=== PATIENT | female | born 1980 | race Hispanic/Latino ===

== ENCOUNTER 2017-12-08 13:02 | Inpatient (IN) | payer MEDICAID, OTHER ==
[2017-12-08 13:02] VITALS: BMI 23.3
[2017-12-08 14:45] LABS: BASO % 0.7 % (0.0-2.0); EOS # 0.2 K/uL (0.0-0.7); EOS % 2.3 % (0.0-4.0); HEMOGLOBIN 13.2 g/dL (11.0-16.0); LYMPH # 1.9 K/uL (1.0-4.3); LYMPH % 28.2 % (20.0-40.0); MEAN CELL VOLUME 85.7 fL (81.0-99.0); MEAN CORPUSCULAR HEMOGLOBIN 29.4 pg (27.0-31.0); MEAN CORPUSCULAR HGB CONC 34.3 g/dL (33.0-37.0); MEAN PLATELET VOLUME 7.7 fL (7.2-11.7); MONO # 0.4 K/uL (0.0-0.8); MONO % 6.5 % (0.0-10.0); NEUT # 4.3 K/uL (1.8-7.0); NEUT % 62.3 % (50.0-75.0); RBC 4.49 Mil/uL (3.80-5.20); RED CELL DISTRIBUTION WIDTH 14.9 % (11.5-14.5); WHITE BLOOD COUNT 6.9 K/uL (4.8-10.8)
[2017-12-08 14:53] LABS: HCG,QUALITATIVE URINE NEGATIVE (NEGATIVE)
[2017-12-08 14:56] LABS: SQUAMOUS EPITHIAL 5 /hpf (0-5); URINE BILIRUBIN NEGATIVE (NEGATIVE); URINE BLOOD NEGATIVE (NEGATIVE); URINE CLARITY Hazy (Clear); URINE COLOR Yellow (YELLOW); URINE GLUCOSE (UA) NORMAL (Normal); URINE LEUKOCYTE ESTERASE NEG Leu/uL (Negative); URINE PROTEIN NEGATIVE (NEGATIVE)
[2017-12-08 14:57] LABS: ALBUMIN 4.2 g/dL (3.5-5.0); ALT/SGPT 63 U/L (9-52); AST/SGOT 42 U/L (14-36); BLOOD UREA NITROGEN 19 mg/dL (7-17); CALCIUM 9.2 mg/dl (8.6-10.4); GFR AFRICAN-AMERICAN > 60; GFR NON-AFRICAN AMERICAN > 60
[2017-12-08 15:03] LABS: BARBITURATES, UR NEGATIVE (NEGATIVE); BENZODIAZEPINES, UR NEGATIVE (NEGATIVE); PHENCYCLIDINE, UR NEGATIVE (NEGATIVE)
[2017-12-08 15:05] LABS: OPIATES, UR POSITIVE (NEGATIVE)
--- NOTE | 2017-12-08 15:28 | C.PDOC ---
History Of Present Illness 37 y/o female, prescreened, presents to the ER requesting detox from opiate use. Patient states that he does IV drug use and his last use was today. Patient denies having suicidal ideation, homicidal ideation, and active physical complaints.Of note, patient is accompanied by family members. Time Seen by Provider: 12/08/17 13:47 Chief Complaint (Nursing): Medical Clearance History Per: Patient History/Exam Limitations: no limitations Past Medical History Reviewed: Historical Data, Nursing Documentation, Vital Signs Vital Signs: Last Vital Signs Temp 98.4 F 12/08/17 15:57 Pulse 76 12/08/17 15:57 Resp 18 12/08/17 15:57 BP 105/67 12/08/17 15:57 Pulse Ox 97 12/08/17 16:24 - Medical History PMH: Anxiety, Asthma, Back Problems, Depression, Diverticulitis, Fibromyalgia, Gastrointestinal Ulcer, Hyperthyroidism, Multiple Sclerosis Denies: Alzheimer's Disease, Anemia, Bronchitis, Cardia Arrhythmia, CHF, COPD , Crohn's Disease, Dementia, Diabetes, Emphysema, Gall Bladder Disease, Hepatitis, HIV, HTN, Hypercholesterolemia, Hypothyroidism, Kidney Stones, Migraine, Mitral Valve Prolapse, Pancreatitis, Parkinson's Disease, Peripheral Edema, Pneumonia, Chronic Kidney Disease, Seizures, Sickle Cell Disease, Sleep Apnea, TIA Surgical History: Denies: Coronary Stent, Pacemaker - [facility] Procedures APPLICATION OF SPLINT (01/28/03) COLONOSCOPY (12/06/11) D & C NEC (01/31/03) DETOXIFICATION SERVICES FOR SUBSTANCE ABUSE TREATMENT (06/06/16) ESOPHAGOGASTRODUODENOSCOPY [EGD] W/CLOSED BIOPSY (12/06/11) INJECT/INFUSE NEC (10/13/14) OTHER GROUP THERAPY (01/07/15) PERCUTAN NEEDLE BIOPSY OF BREAST (02/23/04) REMOV INTRALUM VAG FB (02/25/03) REMOV TUBE & ECTOP PREG (01/31/03) VACCINATION NEC (12/06/11) Family History: States: No Known Family Hx - Social History Hx Tobacco Use: No Hx Alcohol Use: No Hx Substance Use: Yes - Immunization History Hx Tetanus Toxoid Vaccination: Yes Hx Influenza Vaccination: No Hx Pneumococcal Vaccination: No Review Of Systems Except As Marked, All Systems Reviewed And Found Negative. Constitutional: Negative for: Fever, Chills Physical Exam - Physical Exam Appears: No Acute Distress Skin: Normal Color, Warm, Dry Head: Atraumatic, Normacephalic Eye(s): bilateral: Normal Inspection Nose: Normal Oral Mucosa: Moist Neck: Supple Chest: Symmetrical Cardiovascular: Rhythm Regular Respiratory: Normal Breath Sounds, No Rales, No Rhonchi, No Wheezing Gastrointestinal/Abdominal: Normal Exam, Bowel Sounds ((+) bowel sounds), Soft, No Tenderness, No Guarding, No Rebound Neurological/Psych: Oriented x3, Normal Speech ED Course And Treatment - Laboratory Results Result Diagrams: 12/08/17 14:38 12/08/17 14:38 O2 Sat by Pulse Oximetry: 97 (RA) Pulse Ox Interpretation: Normal Medical Decision Making Medical Decision Making: Assessment: Drug Abuse Plan: --Labs --UA Updates: Patient has been medically cleared for Crisis. 15:28 Patient has been admitted under the service of for drug abuse. Disposition Discussed With .: Carmita Mendoza Doctor Will See Patient In The: Hospital Counseled Patient/Family Regarding: Studies Performed, Diagnosis - Disposition Disposition: HOSPITALIZED Disposition Time: 15:28 Condition: FAIR - Clinical Impression Clinical Impression: Drug abuse - Scribe Statement The provider has reviewed the documentation as recorded by the Scribe Palma Up Provider Attestation: All medical record entries made by the Scribe were at my direction and personally dictated by me. I have reviewed the chart and agree that the record accurately reflects my personal performance of the history, physical exam, medical decision making, and the department course for this patient. I have also personally directed, reviewed, and agree with the discharge instructions and disposition.
--- NOTE | 2017-12-08 15:43 | PCM.BM ---
Treatment Plan Problems - Problems identified on initial assessmt potential for opiate withdrawal Date Initiated: 12/08/17 Time Initiated: 15:43 Status: Active Treatment assets and liabiliti Patient Assests: cooperative, cognitively intact Patient Liabilities: substance abuse, medical problems - Milieu Protocol Maintain good personal hygiene: daily Encourage regular showers, daily Remind patient to perform daily oral care, daily Assist patient to perform ADL's Conduct patient checks and document Observation sheet: Q15 minutes Maintain personal safety: every shift Educate patient to report safety concerns to staff, every shift Monitor environment for contraband/sharps Medication safety: Monitor for expected outcome, potential side effects: every shift, Assess barriers to learning: every shift, Assess readiness for medication education: every shift
[2017-12-08 15:55] VITALS: RESP 18
[2017-12-08] MEDS ORDERED: Aluminum Hydroxide/Magnesium Hydroxide Susp (30 mL) PO PRN (16:35)
--- NOTE | 2017-12-09 17:58 | PCM.PSYCH ---
Initial Psychiatric Evaluation - Initial Psychiatric Evaluation Type of Admission: Voluntary Legal Status: Capacity Chief Complaint (in patient's own words): I need help for my substance use. History of Present Illness and Precipitating Events: Patient is a 37 years old, single, unemployed, female, with no previous psychiatric history was admitted due to withdrawing from heroin, cocaine and cannabis. Heroin: Patient started using heroin about 3 years ago, increased gradually, currently she was using 20 bags of heroin daily, IV, last used yesterday. Longest period of abstinence was one month 2 years ago. Before started using heroin patient was using oxycodone, was using more than prescribed. Patient has history of multiple sclerosis. Patient also has history of ectopic and left breast cystectomy. Cocaine: Patient refused to provide information about cocaine use. Patient's response was I don't know next Cannabis: Same response I don't know. According to previous psychiatric patient was using cannabis. Was using once a month and one joint each time. Urine drug screen was also positive for methadone. Patient reported she went to [facility] and there she got methadone for pain. According to previous history patient also was using Connie. Patient smokes half pack of cigarettes daily and is requesting for nicotine patch. Patient was born in [place], has 12th grade of education. He is not working. Patient lives with boyfriend and is supported by her boyfriend. Patient is single and has no children. Current Medications: Active Medications Generic Name Dose Route Start Last Admin Trade Name Freq PRN Reason Stop Dose Admin Al Hydrox/Mg Hydrox/Simethicone 30 ml 12/08/17 16:35 Maalox 30 Ml PO TID PRN Indigestion / Heartburn Clonidine HCl 0.1 mg 12/08/17 16:35 12/08/17 21:09 Catapres PO 0.1 mg Q8 PRN Administration COWS Score More or Equal to 5 Dicyclomine HCl 10 mg 12/09/17 12:34 Bentyl PO Q6 PRN ABDOMINAL CRAMPS Ibuprofen 600 mg 12/08/17 16:36 12/09/17 12:49 Motrin Tab PO 600 mg Q6H PRN Administration Pain, moderate (4-7) Loperamide HCl 2 mg 12/08/17 16:35 Imodium PO Q8 PRN Diarrhea Lorazepam 1 mg 12/09/17 12:36 Ativan PO 12/11/17 23:00 Q6 PRN Anxiety Methadone HCl 15 mg 12/10/17 10:00 Methadone PO 12/13/17 09:59 Q24H KRISTOFER Taper Nicotine 1 patch 12/09/17 12:45 12/09/17 12:49 Nicoderm Cq TD 1 patch DAILY KRISTOFER Administration Ondansetron HCl 4 mg 12/08/17 16:35 Zofran Tab PO Q8 PRN Nausea/Vomiting Trazodone HCl 150 mg 12/08/17 22:00 12/08/17 21:09 Desyrel PO 150 mg HS KRISTOFER Administration Past Psychiatric History - Past Psychiatric History Previous [facility] History of Abuse: None reported History of ETOH/Drug Use: See HPI History of Family Illness: None reported Pertinent Medical Hx (Current Medical&Sleep Prob, Allergies): Allergies Allergy/AdvReac Type Severity Reaction Status Date / Time morphine Allergy ANAPHYLAXIS Verified 12/08/17 13:30 No Known Home Med 12/08/17 Multiple sclerosis Review of Systems - Psychiatric Psychiatric: As Per HPI Mental Status Examination - Personal Presentation Personal Presentation: Looks stated age - Affect Affect: Depressed - Motor Activity Motor Activity: Calm - Reliability in Providing Information Reliability in Providing Information: Fair - Speech Speech: Organized - Mood Mood: Depressed - Formal Thought Process Formal Thought Process: No Impairment - Hallucinations/Delusions Hallucinations: Other (None reported) Delusions: Other - Obsessions/Compulsions Obsessions: None Compulsions: None - Cognitive Functions Orientation: Person, Place, Situation, Time Sensorium: Alert Attention/Concentration: Attentive Abstract Thinking: Caro Estimate of Intelligence: Average Judgement: Intact, as evidence by: Insight regarding need for hospitalization Memory: Recent intact, as evidence by: Ability to recall events of the day, Remote intact, as evidenced by: Ability to recall historical events - Risk Risk: Withdrawal, Diminished functioning - Strength & Assets Inventory Strength & Assets Inventory: Cooperative - Limitations Limitations: Other DSM 5 DX - DSM 5 DSM 5 Diagnosis: Opiate use disorder severe Cocaine use disorder severe Cannabis use disorder severe - Recommended/Plan of Treatment Treatment Recommendations and Plan of Treatment: Patient education. Supportive therapy. CPT reported relapse prevention. AL for abstinence. We'll start methadone taper for opiate withdrawal symptoms. Other when necessary medications. Medical consult for multiple sclerosis. Patient wants to go to a rehabilitation after discharge from the hospital Projected ELOS: 4-5 days - Smoking Cessation Smoking Cessation Initiated: Yes
--- NOTE | 2017-12-09 19:19 | CP.PCM.CON ---
History of Present Illness - History of Present Illness History of Present Illness: Internal Medicine Consult Note - Hospitalist Service CC: "My legs are numb" HPI: Patient is a 37 year old female with past medical history of questionable multiple sclerosis, poly-substance abuse, asthma, herniated discs presented to [facility] requesting Detox for opiates. While on Detox floor, patient started developing bilateral lower extremity numbness and pain. She reports that her "knees are buckling". Patient states that she starts to experience these symptoms when she stops using drugs. She reports having lower back pain that radiates down both legs. Rates the pain a 9/10 on the pain scale. She reports that she has gotten epidural injections in the low back before in the past but that did not help. Patient states that she normally has unsteady gait, that improves with taking drugs. Her last fall was two weeks ago. For MS, she states that she was diagnosed two years ago by Dr Rivers in [place], she has tried Flexeril and Naproxen in the past but stopped due to the development of gastric ulcers. She has been using heroin for the past 3 years. Patient injects heroin in her arms and feet, denies injecting in her back or pelvis. She denies sharing needles, and states that she uses 20 bags per day. She reports smoking crack cocaine recently because she has been stressed. Also states that she smokes medical marijuana that is prescribed to her friend. Patient admits to having dysuria x 1 month. Denies any bladder or bowel incontinence. Denies fevers, chills, headaches, dizziness, cp, palpitations, sob, changes in bowel habits. Patient sees Dr Bonilla for pain management outpatient. Allergies: Morphine (swelling) Medical History: Multiple Sclerosis?, poly-substance abuse, asthma, carpel tunnel, gastric ulcers, Herniated discs Medications: Oxycodone 30mg PO Q4H prn pain, Fentanyl patch q72 hours (stopped taking), albuterol inhaler (uses everyday) Surgical History: Left salpingectomy, left breast cyst removal Social History: Injects 20 bags of heroin/day, smokes 1/2 pack of cigarettes a day x 15 years, denies alcohol use Family History: Mother - Hypertension; Father - from Lung [place] [employer] History: Last Menstrual Period 11/2017; not sexually active, denies history of STDs Past Patient History - Infectious Disease Hx of Infectious Diseases: None - Tetanus Immunizations Tetanus Immunization: Unknown - Past Medical History & Family History Past Medical History?: Yes - Past Social History Smoking Status: Heavy Smoker > 10 Cigarettes Daily - CARDIAC Hx Cardia Arrhythmia: No Hx Congestive Heart Failure: No Hx Hypercholesterolemia: No Hx Hypertension: No Hx Mitral Valve Prolapse: No Hx Pacemaker: No Hx Peripheral Edema: No - PULMONARY Hx Asthma: Yes Hx Bronchitis: No Hx Chronic Obstructive Pulmonary Disease (COPD): No Hx Emphysema: No Hx Pneumonia: No Hx Sleep Apnea: No - NEUROLOGICAL Hx Alzheimer's Disease: No Hx Dementia: No Hx Migraine: No Hx Multiple Sclerosis: Yes Hx Parkinson's Disease: No Hx Seizures: No Hx Transient Ischemic Attacks (TIA): No - HEENT Hx HEENT Problems: No - RENAL Hx Chronic Kidney Disease: No Hx Kidney Stones: No - ENDOCRINE/METABOLIC Hx Hyperthyroidism: Yes Hx Hypothyroidism: No - HEMATOLOGICAL/ONCOLOGICAL Hx Anemia: No Hx Human Immunodeficiency Virus (HIV): No Hx Sickle Cell Disease: No - INTEGUMENTARY Hx Dermatological Problems: No - MUSCULOSKELETAL/RHEUMATOLOGICAL Hx Falls: No Hx Herniated Disk: Yes Other/Comment: carpal tunnel syndrome - GASTROINTESTINAL Hx Crohn's Disease: No Hx Diverticulitis: Yes Hx Gall Bladder Disease: No Hx Pancreatitis: No - PSYCHIATRIC Hx Substance Use: Yes - SURGICAL HISTORY Hx Coronary Stent: No - ANESTHESIA Hx Anesthesia: Yes Hx Anesthesia Reactions: No Hx Malignant Hyperthermia: No Meds Allergies/Adverse Reactions: Allergies Allergy/AdvReac Type Severity Reaction Status Date / Time morphine Allergy ANAPHYLAXIS Verified 12/08/17 13:30 - Medications Medications: Current Medications Al Hydrox/Mg Hydrox/Simethicone (Maalox 30 Ml) 30 ml PO TID PRN PRN Reason: Indigestion / Heartburn Clonidine HCl (Catapres) 0.1 mg PO Q8 PRN PRN Reason: COWS Score More or Equal to 5 Last Admin: 12/08/17 21:09 Dose: 0.1 mg Dicyclomine HCl (Bentyl) 10 mg PO Q6 PRN PRN Reason: ABDOMINAL CRAMPS Ibuprofen (Motrin Tab) 600 mg PO Q6H PRN PRN Reason: Pain, moderate (4-7) Last Admin: 12/09/17 12:49 Dose: 600 mg Loperamide HCl (Imodium) 2 mg PO Q8 PRN PRN Reason: Diarrhea Lorazepam (Ativan) 1 mg PO Q6 PRN PRN Reason: Anxiety Stop: 12/11/17 23:00 Methadone HCl (Methadone) 15 mg PO Q24H [facility] PRN Reason: Taper Stop: 12/13/17 09:59 Nicotine (Nicoderm Cq) 1 patch TD DAILY [facility] Last Admin: 12/09/17 12:49 Dose: 1 patch Ondansetron HCl (Zofran Tab) 4 mg PO Q8 PRN PRN Reason: Nausea/Vomiting Trazodone HCl (Desyrel) 150 mg PO HS [facility] Last Admin: 12/08/17 21:09 Dose: 150 mg Physical Exam - Constitutional Appears: Non-toxic, No Acute Distress, Older Than Stated Age - Head Exam Head Exam: ATRAUMATIC, NORMAL INSPECTION, NORMOCEPHALIC - Eye Exam Eye Exam: EOMI, Normal appearance Pupil Exam: NORMAL ACCOMODATION - ENT Exam ENT Exam: Mucous Membranes Moist - Neck Exam Neck exam: Positive for: Full Rom - Respiratory Exam Respiratory Exam: Clear to Auscultation Bilateral, NORMAL BREATHING PATTERN. absent: Rales, Rhonchi, Wheezes - Cardiovascular Exam Cardiovascular Exam: REGULAR RHYTHM, +S1, +S2 - GI/Abdominal Exam GI & Abdominal Exam: Normal Bowel Sounds, Soft. absent: Guarding, Rebound, Rigid, Tenderness Additional comments: +Suprapubic tenderness - Rectal Exam Rectal Exam: Deferred - Extremities Exam Extremities exam: Negative for: calf tenderness Additional comments: Upper Extremities: Track estevez on both forearms Lower Extremities: +patient with broad based gait, +bilateral crepitus in knees , decreased sensation in right upper and lower leg Results - Vital Signs Recent Vital Signs: Last Vital Signs Temp 98.6 F 12/09/17 16:48 Pulse 65 12/09/17 13:05 Resp 18 12/09/17 16:48 BP 113/71 12/09/17 16:48 Pulse Ox 100 12/09/17 16:48 - Labs Result Diagrams: 12/08/17 14:38 12/08/17 14:38 Assessment & Plan - Assessment and Plan (Free Text) Assessment: A/P: Patient is a 37 year old female with past medical history of poly- substance abuse, questionable MS, asthma presents to [facility] requesting detox from opiates. Medicine was consulted to evaluate for bilateral lower extremity numbness and unsteady gait. Low back Pain/Leg pain -Stable, afebrile -Patient with history of Herniated discs -Denies bowel or bladder incontinence -Lumbar CT ordered for further evaluation -Bilateral Knee X rays ordered -PT eval/ OT eval ordered -Patient to ambulate with assistance -High fall risk Questionable history of MS -Patient states that she has seen Dr. Rivers ([place]) in the past -Brain MRI in 2014 not suggestive of multiple sclerosis -States that she has tried Flexeril and Naproxen in the past but stopped due to gastric ulcers -Neurology on consult, help appreciated Poly-Substance Abuse -UTOX positive for cocaine, marijuana, opiates, methadone -Discussed with the patient the importance of cessation -Patient states that she wishes to stop using drugs -Nicotine Patch -Detox management per psych team Elevated LFTs -AST/ALT 42/62, trending down -Hepatitis Panel 02/2017 Hep C reactive -Genotyping and viral load to be done outpatient -Advised to stop sharing needles and engaging in risky behavior History of Asthma -Albuterol sulfate prn shortness of breath GI/DVT ppx: -No GI ppx indicated at this time -SCDs Plan discussed with Dr Shashi Tariq DO PGY-2
[2017-12-09] MEDS ORDERED: Albuterol HFA 90 mcg/actuation (8 g) INH PRN (20:16)
[2017-12-10 04:44] VITALS: TEMP 98; O2SAT 99
[2017-12-10 07:49] VITALS: BP 110/70; PULSE 78
== END 2017-12-10 07:45 | disposition left against medical advice (07) | DRG 894 ==
LOC: C.ER 13:02 → C.9E 15:15 → C.7D 15:27
PROVIDERS: ADMIT Psychiatry & Neurology Psychiatry; ATTEND Psychiatry & Neurology Psychiatry
PROC: HZ2ZZZZ Detoxification Services for Substance Abuse Treatment (ICD-10-PCS; principal; 2017-12-08)
PROC: HZ91ZZZ Pharmacotherapy for Substance Abuse Treatment, Methadone Maintenance (ICD-10-PCS; 2017-12-08)
PROC: HZ59ZZZ Individual Psychotherapy for Substance Abuse Treatment, Supportive (ICD-10-PCS; 2017-12-08)
PROC: HZ46ZZZ Group Counseling for Substance Abuse Treatment, Psychoeducation (ICD-10-PCS; 2017-12-08)
PROC: HZ90ZZZ Pharmacotherapy for Substance Abuse Treatment, Nicotine Replacement (ICD-10-PCS; 2017-12-08)
DX: F11.20 Opioid dependence, uncomplicated (principal); F14.20 Cocaine dependence, uncomplicated; F12.20 Cannabis dependence, uncomplicated; F17.210 Nicotine dependence, cigarettes, uncomplicated; G35 Multiple sclerosis; J45.909 Unspecified asthma, uncomplicated; M79.7 Fibromyalgia; Z87.11 Personal history of peptic ulcer disease; Z91.81 History of falling

== ENCOUNTER 2017-12-11 03:28 | Emergency (ER) | payer MEDICAID, OTHER ==
[2017-12-11 03:29] VITALS: BMI 23.3
[2017-12-11 03:45] VITALS: BP 114/78; PULSE 87; RESP 18; TEMP 98.2; O2SAT 97
--- NOTE | 2017-12-11 03:58 | C.PDOC ---
Time Seen by Provider: 12/11/17 03:54 Chief Complaint (Nursing): Substance Abuse Past Medical History Vital Signs: Last Vital Signs Temp 98.2 F 12/11/17 03:40 Pulse 87 12/11/17 03:40 Resp 18 12/11/17 03:40 BP 114/78 12/11/17 03:40 Pulse Ox 97 12/11/17 03:40 - Medical History PMH: Anxiety, Asthma, Back Problems, Depression, Diverticulitis, Fibromyalgia, Gastrointestinal Ulcer, Hyperthyroidism, Multiple Sclerosis Denies: Alzheimer's Disease, Anemia, Bronchitis, Cardia Arrhythmia, CHF, COPD , Crohn's Disease, Dementia, Diabetes, Emphysema, Gall Bladder Disease, Hepatitis, HIV, HTN, Hypercholesterolemia, Hypothyroidism, Kidney Stones, Migraine, Mitral Valve Prolapse, Pancreatitis, Parkinson's Disease, Peripheral Edema, Pneumonia, Chronic Kidney Disease, Seizures, Sickle Cell Disease, Sleep Apnea, TIA Surgical History: Denies: Coronary Stent, Pacemaker - [facility] Procedures APPLICATION OF SPLINT (01/28/03) COLONOSCOPY (12/06/11) D & C NEC (01/31/03) DETOXIFICATION SERVICES FOR SUBSTANCE ABUSE TREATMENT (06/06/16) ESOPHAGOGASTRODUODENOSCOPY [EGD] W/CLOSED BIOPSY (12/06/11) INJECT/INFUSE NEC (10/13/14) OTHER GROUP THERAPY (01/07/15) PERCUTAN NEEDLE BIOPSY OF BREAST (02/23/04) REMOV INTRALUM VAG FB (02/25/03) REMOV TUBE & ECTOP PREG (01/31/03) VACCINATION NEC (12/06/11) - Social History Hx Tobacco Use: No Hx Alcohol Use: No Hx Substance Use: Yes - Immunization History Hx Tetanus Toxoid Vaccination: Yes Hx Influenza Vaccination: No Hx Pneumococcal Vaccination: No ED Course And Treatment O2 Sat by Pulse Oximetry: 97 Disposition - Disposition Disposition: HOME/ ROUTINE Disposition Time: 03:58 Condition: STABLE Instructions: Drug Abuse and Drug Addiction (DC)
== END 2017-12-11 04:06 | disposition left against medical advice (07) ==
LOC: C.ER 03:28
DX: Z02.89 Encounter for other administrative examinations (principal); F19.10 Other psychoactive substance abuse, uncomplicated